=== PATIENT | female | born 1995 | race African-American/Black ===

== ENCOUNTER 2018-11-26 09:40 | Inpatient (IN) ==
--- NOTE | 2018-11-25 18:14 | HISTORY AND PHYSICAL ---
HISTORY OF PRESENT ILLNESS: Patient is a 23-year-old black female, G5, P4, history of x4, who presents at 39 weeks for repeat and tubal ligation. Patient has had late care. Rubella status is nonimmune. PAST MEDICAL HISTORY: Significant for obesity. PAST SURGICAL HISTORY: Significant for x4. FAMILY HISTORY: High blood pressure, diabetes mellitus, and colon cancer. REVIEW OF SYSTEMS: All systems reviewed and noncontributory. PAST OBSTETRICAL HISTORY: G5, P4, x4. GYNECOLOGICAL HISTORY: Menarche at age 10. SOCIAL HISTORY: Tobacco use: None. Alcohol: Use none. MEDICATIONS: vitamins. ALLERGIES: No known drug allergies. PHYSICAL EXAMINATION: HEIGHT/WEIGHT: Height 5 feet 6 inches, weight 297 pounds. VITAL SIGNS: Blood pressure 110/68, pulse 72, respirations 20. heart rate was noted to be 133. HEENT: Pupils equal, round, and reactive to light and accommodation. Extraocular movements intact. Oropharynx clear. NECK: Supple. No thyromegaly. LUNGS: Clear to auscultation. HEART: Regular rate and rhythm. ABDOMEN: Gravid, nontender. EXTREMITIES: Mild lower extremity edema. NEUROLOGICAL: DTRs 1+ bilaterally. Cranial nerves 2-12 grossly intact. Motor 5/5. ASSESSMENT AND PLAN: A 23-year-old black female, 5, para 4 at 39 weeks gestation for repeat section and tubal ligation. Patient counseled about the permanency of the procedure, failure rate of 2 to 4 per 1000, as well as the availability of reversible alternatives such as IUD, control pills, patches, etc. The patient was also counseled about the risks of surgery, including bleeding, infection, bowel or bladder injury. cc: Artemio Dunbar III, MD
[2018-11-26] MEDS ORDERED: LR 500 ML IV ONE (11:27)
[2018-11-26] MEDS ORDERED: PEPCID PO ONE (11:27)
[2018-11-26] MEDS ORDERED: REGLAN PO ONE (11:27)
[2018-11-26] MEDS ORDERED: BICITRA PO ONE (11:27)
[2018-11-26] MEDS ORDERED: KEFZOL 1 GM/D5W 1 GM/50 ML IVPB IV PRN (11:27)
[2018-11-26 11:35] LABS: URINE SOURCE VOIDED
[2018-11-26 11:38] LABS: BASO# 0.01 X1000 (0.0-0.2); BASO% 0.1 % (0.0-0.8); EOS# 0.11 X1000 (0.0-0.7); HEMATOCRIT 33.9 % (37.0-47.0); HEMOGLOBIN 10.6 g/dL (12.0-16.0); IMM GRAN# 0.04 X1000 (0.0-0.04); IMM GRAN% 0.4 % (0.0-0.5); LYMPH# 1.49 X1000 (1.2-3.4); LYMPH% 14.1 % (20.5-51.1); MCH 26.4 PG (27-31); MCHC 31.3 g/dL (33-37); MCV 84.5 FL (81-99); MONO# 0.62 X1000 (0.11-0.59); MONO% 5.9 % (1.7-9.3); MPV 11.1 FL (7.4-10.4); NEUT# 8.28 X1000 (1.4-6.5); NEUT% 78.5 % (42.2-75.2); PLT 187 X1000 (130-400); RBC 4.01 XMIL (4.2-5.4); RDW 15.2 % (11.5-14.5); WBC 10.55 X1000 (4.8-10.8)
[2018-11-26 11:43] LABS: BILIRUBIN URINE NEGATIVE (NEGATIVE); BLOOD URINE 2+ (NEGATIVE); CLARITY SL. CLOUDY (CLEAR); COLOR YELLOW; GLUCOSE URINE NEGATIVE (NEGATIVE); KETONE URINE TRACE mg/dL (NEGATIVE); LEUKOCYTES URINE 1+ (NEGATIVE); NITRITE URINE NEGATIVE (NEGATIVE); PH URINE 6.5; PROTEIN URINE 1+(30 mg/dL) mg/dL (NEGATIVE); UROBILINOGEN URINE 1 mg/dL
[2018-11-26] MEDS ORDERED: KEFZOL 1 GM/D5W 1 GM/50 ML IVPB ONE (11:54)
[2018-11-26] MEDS: LR 1,000 ML IV SCH ×2 (12:00→12:20)
[2018-11-26] MEDS ORDERED: PITOCIN ONE (12:17)
[2018-11-26] MEDS ORDERED: DURAMORPH ONE (12:17)
[2018-11-26] MEDS ORDERED: EPHEDRINE ONE (12:18)
[2018-11-26] MEDS ORDERED: PITOCIN 20 UNITS/NS 20 UNITS/1,000 ML IV.SOLN ONE (14:01)
[2018-11-26] MEDS ORDERED: DEMEROL IM PRN (14:08)
[2018-11-26] MEDS ORDERED: AMBIEN PO PRN (14:08)
[2018-11-26] MEDS ORDERED: PITOCIN 20 UNITS/NS 20 UNITS/1,000 ML IV.SOLN IV ONE (14:08)
[2018-11-26] MEDS ORDERED: HYDROXYZINE IM PRN (14:08)
[2018-11-26] MEDS ORDERED: PITOCIN IM PRN (14:08)
[2018-11-26] MEDS ORDERED: DULCOLAX PR PRN (14:08)
[2018-11-26] MEDS ORDERED: PHENERGAN IM PRN (14:08)
[2018-11-26] MEDS ORDERED: M-M-R II VACCINE SUBQ ONE (14:08)
[2018-11-26] MEDS ORDERED: BOOSTRIX VACCINE IM ONE (14:08)
[2018-11-26] MEDS ORDERED: PERCOCET-5 PO PRN (14:08)
[2018-11-26] MEDS ORDERED: DEMEROL PO PRN ×2 (14:08)
[2018-11-26] MEDS ORDERED: ATARAX PO PRN (14:08)
[2018-11-26] MEDS ORDERED: DILAUDID IV PRN (14:22)
[2018-11-26] MEDS ORDERED: NARCAN IV PRN (14:30)
[2018-11-26] MEDS ORDERED: ZOFRAN IV PRN ×3 (14:30)
[2018-11-26] MEDS ORDERED: SODIUM CHLORIDE 0.9% INJ PRN (14:30)
[2018-11-26] MEDS ORDERED: LR 1,000 ML IV SCH (14:30)
[2018-11-26] MEDS ORDERED: PHENERGAN IV PRN (14:30)
[2018-11-26] MEDS ORDERED: BENADRYL IV PRN ×2 (14:30)
[2018-11-26] MEDS ORDERED: ZOFRAN ODT PO PRN (14:30)
[2018-11-26] MEDS ORDERED: NARCAN INJ PRN (14:30)
--- NOTE | 2018-11-26 14:46 | OPERATIVE NOTE ---
PROCEDURE DATE: 11/26/2018 PREOPERATIVE DIAGNOSES: 1. Intrauterine 39 and 0/7 weeks with history of section for repeat section. 2. Also, patient desires sterilization. POSTOPERATIVE DIAGNOSES: 1. Intrauterine 39 and 0/7 weeks with history of section for repeat section. 2. Also, patient desires sterilization. 3. Operative delivery of a male infant, 7 pounds 4 ounces, with Apgars of 9 and 10 at 12:56 on 11/26/2018. PROCEDURE: Repeat low-transverse section and bilateral tubal ligation. SURGEON: Artemio Dunbar III, MD ASSIST: Bro. ANESTHESIA: Spinal, Gary. FINDINGS: Normal-appearing uterus, tubes, and ovaries. COMPLICATIONS: None. ESTIMATED BLOOD LOSS: 600 mL. SPECIMENS REMOVED: Right and left fallopian tube segments. DRAINS: Herrera to straight drain. COUNTS: All counts were correct x3. INDICATIONS: Patient is a 23-year-old black female G5, P4, at 39 weeks gestation with history of prior x4 for elective repeat . Patient also expressed desire for permanent sterilization. Patient was counseled about the risks of surgery, including bleeding, infection, bowel or bladder injury. Patient was also counseled about the permanency of tubal ligation, failure rate of 2 to 4 per 1000, as well as the availability of reversible alternatives, such as IUD, control pills, patches, etc. The patient voices understanding. DESCRIPTION OF PROCEDURE: Patient was taken to OR, had spinal anesthesia placed, and placed in a supine position with a roll under right hip and then prepped and draped in sterile fashion with placement of Herrera catheter. Adequate anesthesia was noted by using Allis clamps on skin. Then a Pfannenstiel skin incision was made on the lower abdomen using scalpel. This was taken down sharply to the fascia layer. A small richard was made in the rectus fascia. Fascial incision was then extended by curved Pfeiffer scissors bilaterally and then the superior and inferior aspects of the rectus fascia were then bluntly and sharply dissected. Rectus muscle was then divided in the midline and the peritoneal layer was entered bluntly. The peritoneal incision was extended superiorly with care taken to avoid the bladder. Bladder reflection was attempted, but very little progress was made due to previous scarring from 4 prior C-sections. Bladder blade was placed into the abdominal cavity at this point and a transverse incision was made on the lower uterine segment using a scalpel. The entry into the uterine cavity was accomplished with clear fluid noted. The surgeon's fingers help to develop the transverse incision and then the head was elevated toward the hysterotomy site, and with gentle fundal pressure, the head was delivered atraumatically. Bulb suction of the nose and mouth at this time. Nuchal cord x1 was noted and this was reduced easily over the incision site and then the rest the body was delivered atraumatically with gentle fundal pressure. Umbilical cord was clamped twice and cut, the handed to nursery nurse in attendance for delivery. Cord blood samples obtained at this time. Placenta was then manually extracted. Uterus was then exteriorized. A wet lap was placed around the uterus. Dry lap was then used to curette the uterine cavity of clots and debris. The uterine incision was then closed using 0 chromic in a running locking fashion x1. A small area of oozing was noted on the left corner and made hemostatic with a [id number] stitch of 0 chromic. Good hemostasis was noted. Then, the attention was turned to the fallopian tubes. Right fallopian tube was identified and grasped near the isthmus. A small hole was made in the mesosalpinx and then a 0 plain suture was then used to ligate a portion of the fallopian tube. This portion of fallopian tube was then excised with Metzenbaum scissors and handed off to be placed in a specimen container. The open parts of the fallopian tube were then touched with electrocautery. Good hemostasis was noted. Attention was then turned to the left fallopian tube which was grasped near the isthmus. A small hole was made in the mesosalpinx. Then this was also threaded with 0 plain suture and a portion of the fallopian tube was ligated and this ligated portion was then excised using Metzenbaum scissors. This was also handed off to be placed in a specimen container and open ends of the fallopian tube were then touched with electrocautery and good hemostasis was noted. Posterior cul-de-sac was irrigated copiously and then the uterus was replaced in the abdomen. Pericolic gutters were cleansed using moist lap sponges. Uterine incision and bladder reflection were inspected and good hemostasis was noted there as well [*] the peritoneal layer was difficult to bring together but attempted to close with 2-0 chromic in a running fashion x1. Electrocautery was used to obtain hemostasis in the layer underneath the fascia. Then, the fascial incision was then closed using 0 PDS in a running fashion x1. The subcutaneous tissue was then irrigated copiously. Electrocautery was used to obtain hemostasis and then using electrocautery, dissected the skin to free up the subcutaneous tissue underneath and then the skin was reapproximated using brie. Patient tolerated the procedure well and was taken to the recovery room in stable condition. All counts were correct x3. cc: Artemio Dunbar III, MD
[2018-11-26] MEDS: MORPHINE PCA IV PRN ×2 (15:28→21:21)
[2018-11-26] MEDS: TORADOL IV SCH (18:18)
[2018-11-26] MEDS: MYLICON PO SCH ×2 (18:18→21:11)
[2018-11-26 18:27] LABS: UR AMPHETAMINES QUAL NONE DETECTED (NONE DETECT); UR BARBITUATES QUAL PRESUMPTIVE POSITIVE (NONE DETECT); UR BENZODIAZEPIN QUAL NONE DETECTED (NONE DETECT); UR CANNABINOIDS QUAL NONE DETECTED (NONE DETECT); UR COCAINE QUAL NONE DETECTED (NONE DETECT); UR METHADONE QUAL NONE DETECTED (NONE DETECT); UR METHAMPHETAMINE QUAL NONE DETECTED (NONE DETECT); UR OPIATES QUAL NONE DETECTED (NONE DETECT); UR OXYCODONE QUAL NONE DETECTED (NONE DETECT); UR PCP QUAL NONE DETECTED (NONE DETECT); UR PROPOXYPHENE QUAL NONE DETECTED (NONE DETECT); UR TCA QUAL NONE DETECTED (NONE DETECT)
[2018-11-26] MEDS ORDERED: PITOCIN 10 UNITS/NS 1,000 ML ONE (18:37)
[2018-11-26] MEDS: PITOCIN 10 UNITS/NS 1,000 ML IV SCH (18:39)
[2018-11-26] MEDS: PERICOLACE PO SCH (21:12)
[2018-11-27] MEDS: TORADOL IV SCH ×3 (02:00→17:50)
[2018-11-27] MEDS: PITOCIN 10 UNITS/NS 1,000 ML IV SCH (02:24)
[2018-11-27 04:33] LABS: BASO# 0.01 X1000 (0.0-0.2); BASO% 0.1 % (0.0-0.8); EOS# 0.11 X1000 (0.0-0.7); EOS% 1.1 % (0.0-10.0); HEMATOCRIT 31.5 % (37.0-47.0); HEMOGLOBIN 9.5 g/dL (12.0-16.0); IMM GRAN# 0.02 X1000 (0.0-0.04); IMM GRAN% 0.2 % (0.0-0.5); LYMPH# 1.15 X1000 (1.2-3.4); LYMPH% 11.4 % (20.5-51.1); MCH 26.1 PG (27-31); MCHC 30.2 g/dL (33-37); MCV 86.5 FL (81-99); MONO# 0.55 X1000 (0.11-0.59); MONO% 5.5 % (1.7-9.3); MPV 10.4 FL (7.4-10.4); NEUT# 8.21 X1000 (1.4-6.5); NEUT% 81.7 % (42.2-75.2); PLT 153 X1000 (130-400); RBC 3.64 XMIL (4.2-5.4); RDW 15.2 % (11.5-14.5); WBC 10.05 X1000 (4.8-10.8)
[2018-11-27] MEDS: MORPHINE PCA IV PRN (06:10)
[2018-11-27] MEDS: FERROUS SULFATE PO SCH (09:26)
[2018-11-27] MEDS: MYLICON PO SCH ×4 (09:26→20:10)
[2018-11-27] MEDS: PERCOCET-10 PO PRN ×2 (13:43→19:21)
[2018-11-27] MEDS ORDERED: LR 1,000 ML IV SCH (14:08)
[2018-11-27] MEDS: MOTRIN PO PRN (17:00)
[2018-11-27] MEDS: PERICOLACE PO SCH (20:10)
[2018-11-28] MEDS: PERCOCET-10 PO PRN ×6 (00:06→23:35)
[2018-11-28] MEDS: MOTRIN PO PRN ×3 (01:53→19:25)
[2018-11-28] MEDS: FERROUS SULFATE PO SCH (11:01)
[2018-11-28] MEDS: MYLICON PO SCH ×4 (11:02→21:30)
[2018-11-28] MEDS: MYLICON PO PRN (19:25)
[2018-11-28] MEDS: PERICOLACE PO SCH (21:29)
[2018-11-29] MEDS: PERCOCET-10 PO PRN ×2 (04:45→08:26)
[2018-11-29] MEDS: MOTRIN PO PRN ×2 (04:45→10:48)
[2018-11-29] MEDS: MYLICON PO PRN (05:38)
--- NOTE | 2018-11-29 07:21 | OB/GYN PROGRESS NOTE ---
Progress Note OB - . OB Progress Note: Vital Signs - 24 hr 11/28/18 12:30 11/28/18 16:15 11/28/18 19:15 Temperature 96.7 F L 97.0 F L 97.2 F L Pulse Rate 99 H 79 82 Respiratory Rate 16 16 18 Blood Pressure 141/82 135/61 125/57 O2 Sat by Pulse Oximetry 100 98 100 11/28/18 23:30 11/29/18 04:50 Temperature 96.7 F L 97 F L Pulse Rate 80 75 Respiratory Rate 18 18 Blood Pressure 131/58 126/66 O2 Sat by Pulse Oximetry 99 98 Pt doing well Pain well controlled tolerating po well no N/V +flatus no BM urinating w/o difficulty O: Vitals as above Gen: AAOx3 NAD CV: RRR no g/m/r Lungs: CTAB no w/r/r Abd: +BS soft NT/ND fundus firm at u-2. incision c/d/i with brie/ [place] removed today and steri-strips placed Ext: no c/c/e A: POD#3 s/p RLTCS with BTL Anemia P: D/C home incision check on Sunday
[2018-11-29 07:29] VITALS: BP 137/64
[2018-11-29] MEDS: MYLICON PO SCH (08:27)
[2018-11-29] MEDS: FERROUS SULFATE PO SCH (08:27)
== END 2018-11-29 10:57 | disposition home or self-care (01) | DRG 785 ==
LOC: P.LD 09:40
PROVIDERS: ADMIT Obstetrics & Gynecology; ATTEND Obstetrics & Gynecology